=== PATIENT | male | born 1990 | race Caucasian/White ===

== ENCOUNTER 2017-01-29 15:09 | Emergency (ER) | payer MEDICAID, OTHER ==
[~2017-01-29] VITALS: Wt 71.5 kg
[~2017-01-29 15:09] MED LIST: ACET325T33 PO; FAMO20TA18 PO; POLY17PO6 PO
[2017-01-29] MEDS ORDERED: TYL500 PO (15:51)
[2017-01-29] MEDS ORDERED: FLUT9.9S NASAL (15:52)
[2017-01-29] MEDS ORDERED: ONDA4TAB8 PO (15:52)
[2017-01-29] MEDS ORDERED: PSEU120T51 PO (15:52)
[2017-01-29] MEDS ORDERED: D-ME473S18 PO (15:53)
--- NOTE | 2017-01-29 15:59 | ERD ---
ER Documentation Chief Complaint Date/Time DATE: 01/29/17 TIME: 15:57 Chief Complaint COUGHING AND CONGESTION AND HEADACHE NO FEVERS. WITH RUNNY NOSE HPI This is a 26-year-old male presents to the ER with cough, nasal congestion, headache, sore throat, runny nose for the last 5 days. She denies any fevers or chills. He denies any difficulty in breathing. He denies any chest pain or shortness of breath. Patient is complaining of slight nausea however denies vomiting or diarrhea. He denies any abdominal pain. There are no sick contacts at home. He did not his flu shot this year. ROS 12 point review of systems was done, all negative except per HPI. Medications Home Meds Active Scripts Dextromethorphan Hb-Promethazine Hcl (Promethazine DM Syrup) 473 Ml Syrup, 10 ML PO Q6H Y for COUGH, #4 OZ Prov:FARRUKH KELLOGG 01/29/17 Ondansetron Hcl* (Zofran*) 4 Mg Tablet, 4 MG PO Q6H for NAUSEA AND/OR VOMITING, #30 TAB Prov:FARRUKH KELLOGG 01/29/17 Fluticasone Propionate (Flonase Allergy Relief) 9.9 Ml [place].susp, 1 SPRAY NASAL BID for 10 Days, #1 BOTTLE TO EACH NOSTRIL Prov:FARRUKH KELLOGG 01/29/17 Pseudoephedrine Hcl (Sudafed 12 Hour) 120 Mg Tablet.sa, 120 MG PO BID for 3 Days Prov:FARRUKH KELLOGG 01/29/17 Acetaminophen* (Tylenol*) 500 Mg Tab, 500 MG PO Q4H Y for MILD PAIN LEVEL 1-3 for 3 Days, TAB Prov:FARRUKH KELLOGG 01/29/17 Famotidine* (Famotidine*) 20 Mg Tablet, 20 MG PO BID for 4 Days Prov:ISAURO CHÁVEZ PA-C 04/20/15 Polyethylene Glycol* (Miralax*) 17 Gm Powd.pack, 17 GM PO DAILY, #7 Prov:ISAURO CHÁVEZ PA-C 04/20/15 Acetaminophen* (Tylenol*) 325 Mg Tablet, 2 TAB PO Q8 Y for PAIN AND OR ELEVATED TEMP, #20 TAB Prov:ISAURO CHÁVEZ PA-C 04/20/15 Allergies Allergies: Coded Allergies: No Known Allergy (Unverified , 04/19/15) PMhx/Soc Hx Alcohol Use: No Hx Substance Use: No Hx Tobacco Use: No Physical Exam Vitals Vital Signs Date Time Temp Pulse Resp B/P Pulse Ox O2 Delivery O2 Flow Rate FiO2 01/29/17 15:14 98.6 86 20 115/56 99 Physical Exam GENERAL: The patient is well-developed, well-nourished, in no acute distress. NECK: Cervical spine is non tender with no step off. Supple, no nuchal rigidity HEENT: Atraumatic. Pupils equal, round and reactive to light. Extraocular muscles are grossly intact. Conjunctivae pink, no discharge. Bilateral tympanic membranes are clear with no evidence of erythema, effusion or dulling of the light reflex. Tonsilar erythema with no exudates or uvular deviation. Clear rhinorrhea. RESPIRATORY: Clear to auscultation bilaterally. There are no rales, wheezes or rhonchi. HEART: Regular rate and rhythm. No murmurs, clicks, rubs or gallops. EXTREMITIES: No clubbing or cyanosis. Full range of motion. Grossly neurovascularly intact. NEUROLOGIC: Alert and oriented. Cranial nerves II through XII are intact. SKIN: There is no rash. The skin is warm and dry. Procedures/MDM Differential diagnosis includes but is not limited to; Viral URI, allergic rhinitis, bronchitis, pertussis,pneumonia. This is likely viral in etiology. Clinical suspicion for pneumonia is low as patient appears well, is not hypoxic or in any respiratory distress. Additionally, patients physical examination is benign. Plan was discussed with patient they understand and agree. Patient needs to follow up with PCP in 1-2 days or return to ER sooner if symptoms worsen. Departure Diagnosis: Primary Impression: Upper respiratory infection Condition: Stable Patient Instructions: Adult Self-Care for Colds Referrals: EVANGELINA LOMBARDO (PCP) Additional Instructions: Llame al doctor MAANA y wild sonya NAHOMY PARA DENTRO DE 1-2 JIANG.Dgale a la secretaria que nosotros le instruimos hacer esta nahomy.Avise o llame si lopez condicin se empeora antes de la nahomy. Regresa aqui si peor o no mejor. FARRUKH KELLOGG Jan 29, 2017 15:59
== END 2017-01-29 15:56 | disposition home or self-care (01) ==
LOC: E/R 15:09
DX: J06.9 Acute upper respiratory infection, unspecified (principal)
CPT/HCPCS: 99284